=== PATIENT | male | born 1945 | race Caucasian/White ===

== ENCOUNTER 2016-10-06 08:45 | Emergency (ER) | payer MEDICARE ==
[~2016-10-06] VITALS: Ht 185.4 cm; Wt 101.0 kg
[2016-10-06] MEDS ORDERED: MONT10TA9 PO (10:07)
[2016-10-06] MEDS ORDERED: SIMV20TA3 PO (10:07)
[2016-10-06] MEDS ORDERED: VALS160T3 PO (10:07)
[2016-10-06] MEDS ORDERED: MECL25TA4 PO (10:07)
[2016-10-06] MEDS ORDERED: FINA5TAB4 PO (10:07)
[2016-10-06] MEDS ORDERED: ALFU10TA PO (10:07)
[2016-10-06] MEDS ORDERED: PRED10TA14 PO (10:07)
[2016-10-06] MEDS ORDERED: KETOROLAC 30 MG/1 ML ONE (10:55)
[2016-10-06] MEDS ORDERED: MECLIZINE CHEWABLE 25 MG TAB ONE (10:55)
[2016-10-06] MEDS ORDERED: KETOROLAC 30 MG/1 ML IM ONE (11:00)
[2016-10-06] MEDS ORDERED: MECLIZINE CHEWABLE 25 MG TAB PO ONE (11:00)
[2016-10-06 11:29] LABS: BLOOD UREA NITROGEN 15 mg/dL (7-18)
[2016-10-06 11:35] LABS: IS PT STATUS REG ER OR PRE ER? YES
[2016-10-06 14:13] VITALS: BP 154/74
== END 2016-10-06 14:15 | disposition home or self-care (01) ==
LOC: ED 09:54
DX: I10 Essential (primary) hypertension (principal); H81.11 Benign paroxysmal vertigo, right ear; H69.81 Other specified disorders of Eustachian tube, right ear; M54.42 Lumbago with sciatica, left side; S39.012A Strain of muscle, fascia and tendon of lower back, initial encounter; X58.XXXA Exposure to other specified factors, initial encounter; Y93.89 Activity, other specified; Y99.8 Other external cause status; Y92.89 Other specified places as the place of occurrence of the external cause
CPT/HCPCS: 36415; 70450; 80048; 82040; 84484; 85025; 93005; 96372; 99285; J1885